=== PATIENT | male | born 1985 | race Caucasian/White ===

== ENCOUNTER 2016-02-16 09:23 | Inpatient (IN) | payer OTHER ==
[~2016-02-16] VITALS: Ht 175.3 cm; Wt 102.9 kg
[~2016-02-16 09:23] MED LIST: ACET325T PO; ALPR.5 PO; APIX5TAB PO; BACL10TA PO; BISA10R RECTAL; CLON.1 PO; DAPT500P IV; DOCU1CAP39 PO; FAMO20TA2 PO; FLEE5TAB PO; HEPAR10KP IV; IPRASOL INH; METO-309 PO; METO10TA PO; METO25TA3 PO; MILKSUS PO; MIRA33504 PO; MORP4INJ3 IV PUSH; OXYC1TAB63 PO; PRAZ5 PO; QUET1TAB7 PO; TRAZ50TA12 PO; ULTR50TA5 PO; ZOLO50TA PO; methylPREDNISolone ACETATE 40 MG/ML VIAL ONE
[2016-02-16] MEDS ORDERED: ceFAZolin 2 GM PREMIX 50 ML ONE (10:07)
[2016-02-16] MEDS ORDERED: LACTATED RINGER'S 1000 ML INJ 1,000 ML ONE (10:07)
[2016-02-16] MEDS ORDERED: SODIUM CHLOR 0.9% 250 ML INJ 250 ML ONE (10:07)
[2016-02-16] MEDS ORDERED: VANCOMYCIN HCL 1000 MG VIAL ONE (10:07)
[2016-02-16] MEDS ORDERED: MAGN400T2 PO (10:18)
[2016-02-16 10:24] VITALS: BP 111/66; PULSE 69; RESP 20; TEMP 98; O2SAT 98
[2016-02-16] MEDS ORDERED: METOPROLOL TARTRATE 25 MG TAB PO PRN (10:30)
[2016-02-16] MEDS ORDERED: SODIUM CHLORID 0.9% 500 ML IV SCH (10:30)
[2016-02-16] MEDS ORDERED: LACTATED RINGER'S 1000 ML IV SCH (10:30)
[2016-02-16] MEDS ORDERED: INSULIN HUMAN REGULAR 1,000 UNITS/10 ML VIAL SQ PRN (10:30)
[2016-02-16] MEDS ORDERED: VANCOMYCIN HCL 1000 MG ON-CALL/NS 250 ML IV SCH ×2 (11:00)
[2016-02-16] MEDS ORDERED: ceFAZolin 2 GM PREMIX 50 ML IV SCH (11:00)
[2016-02-16] MEDS ORDERED: ACETAMINOPHEN 1000 MG/100 ML VIAL IV ONE (11:57)
[2016-02-16] MEDS ORDERED: fentaNYL CITRATE 250 MCG/5 ML AMP ONE (11:57)
[2016-02-16] MEDS ORDERED: FAMOTIDINE 20 MG/2 ML VIAL ONE (11:57)
[2016-02-16] MEDS ORDERED: MIDAZOLAM HCL 2 MG/2 ML VIAL ONE (11:57)
[2016-02-16] MEDS ORDERED: NEOSTIGMINE 3 MG/3 ML SYR IV ONE (12:00)
[2016-02-16] MEDS ORDERED: ePHEDrine/NS 50 MG/5 ML SYR IV ONE (12:00)
[2016-02-16] MEDS ORDERED: ONDANSETRON HCL 4 MG/2 ML VIAL IV PUSH ONE (12:00)
[2016-02-16] MEDS ORDERED: PROPOFOL 200 MG/20 ML AMP IV ONE (12:00)
[2016-02-16] MEDS ORDERED: ACETAMINOPHEN/HYDROcodone 325 MG/10 MG TAB PO PRN ×2 (13:00)
[2016-02-16] MEDS ORDERED: SODIUM CHLORIDE 0.9% FLUSH 5 ML FLUSH IVF PRN (13:00)
[2016-02-16] MEDS ORDERED: MORPHINE SULFATE 4 MG/ML INJ IV PUSH PRN ×2 (13:00)
[2016-02-16] MEDS ORDERED: ACETAMINOPHEN 325 MG TAB PO PRN (13:00)
[2016-02-16] MEDS ORDERED: GENTAMICIN SULFATE 80 MG/2 ML VIAL IRRIGATION ONE (13:00)
[2016-02-16] MEDS ORDERED: GENTAMICIN SULFATE 80 MG/2 ML VIAL ONE (13:59)
[2016-02-16] MEDS: NS + KCL 20 MEQ INJ 1,000 ML IV SCH (14:30)
--- NOTE | 2016-02-16 14:53 | PD.OP ---
Operative Report Date of Surgery: Feb 16, 2016 Preoperative Diagnosis: decubitus wound region Postoperative Diagnosis: decubitus wound thoracolumbar region Procedure: Irriigation and debridement of thoraciclumbar wound Anesthesia: general Surgeon: Hermes Jones Balance Screwhead Polisher(s): Stephanie Cash Operation and Findings: INDICATIONS FOR THE PROCEDURE Mr Kay is a 30 year old male who underwent an ORIF of thoracic fracture with posterolateral fusion using transpedicular screws and rods and paraplegia. He did well postoperatively and lumbar incision was examined and healing without complications. The patient was discharged to [facility] where he developed a decubitus/break down near his incision site, which was treated with chemical debridement and was getting larger and deeper . A surgical irrigation and debridement were indicated. The [id number] details of the procedure, indications, alternatives, risks and potential complications were fully discussed with him. He fully understood. All her questions were answered. No guarantees were given. She voiced requesting the procedure and provided informed consents. He was offered the alternative of delaying the procedure and continuing with nonsurgical management. DETAILS OF THE PROCEDURE After the induction of general anesthesia, endotracheal intubation was performed. A Pandya catheter, bilateral BALWINDER hose and sequential compression devices were placed and kept throughout the procedure. The patient was positioned prone on a Dustin table over a Saul frame. All pressure points were carefully padded with eggcrate mattress. The eyes were tapped shut after ointment was applied by the anesthesiologist to prevent corneal abrasion. A Quinton hugger was placed over the exposed lower body to maintain control of the core body temperature. The thoracic region was prepped and draped in the usual sterile fashion. A skin incision was made with a #10 blade and the tissue was excised. It did not appeared infected. The superficial tissue was debrided with curettes and material was cultured and sent to the lab. Small subcutaneous bleeders were controlled with a bipolar and the dissection was carried out through the abnormal tissue superficial to the fascia . A set of cultures were sent to the lab for aerobic and anaerobic, gram stain, AFB and cultures, including TB and fungus. Tissue was sent for pathology After cultures were obtained. the patient received IV antibiotics and the incision was thoroughly and copiously irrigated with double basic ortho antibiotic solution. The incision was then packed open using a wound vac. At the end of the procedure, the sponge, needle and instrument counts were all correct. The estimated blood loss was less than 50 cc. No intraoperative complications occurred. The patient received prophylactic antibiotics. The patient was then extubated and transferred to the recovery room in stable condition. ESTIMATED BLOOD LOSS: Less than 50 cc. No complications. Hermes Jones MD Feb 16, 2016 14:53
[2016-02-16] MEDS: ceFAZolin 2 GM PREMIX 50 ML IV SCH (17:21)
[2016-02-16 20:11] VITALS: BP 115/63; PULSE 66; RESP 18; TEMP 96.6; O2SAT 100
[2016-02-16] MEDS: SODIUM CHLORIDE 0.9% FLUSH 5 ML FLUSH IVF SCH (21:00)
[2016-02-16] MEDS: DOCUSATE SODIUM 100 MG CAP PO SCH (22:25)
[2016-02-17 00:50] VITALS: BP 108/64; PULSE 72; RESP 20; TEMP 97.3; O2SAT 100
[2016-02-17] MEDS: NS + KCL 20 MEQ INJ 1,000 ML IV SCH ×3 (01:44→17:11)
[2016-02-17] MEDS: ceFAZolin 2 GM PREMIX 50 ML IV SCH ×2 (01:44→09:03)
[2016-02-17 05:09] VITALS: BP 111/60; PULSE 76; RESP 20; TEMP 97.7; O2SAT 98
[2016-02-17 07:05] VITALS: BP 108/65; PULSE 80; RESP 20; TEMP 96.7; O2SAT 97
[2016-02-17] MEDS: DOCUSATE SODIUM 100 MG CAP PO SCH ×4 (09:02→20:51)
[2016-02-17] MEDS: SODIUM CHLORIDE 0.9% FLUSH 5 ML FLUSH IVF SCH ×2 (09:02→20:51)
[2016-02-17] MEDS: PANTOPRAZOLE SOD 40 MG DELAYED RELEASE TAB PO SCH (09:03)
[2016-02-17 11:10] VITALS: BP 115/67; PULSE 71; RESP 20; TEMP 96.5; O2SAT 99
[2016-02-17 11:41] LABS: AUTOMATED NEUTROPHIL # 5.2 TH/MM3 (1.8-7.7); BASOPHIL # 0.1 TH/MM3 (0-0.2); BASOPHIL % 0.8 % (0.0-2.0); EOSINOPHIL # 0.1 TH/MM3 (0-0.4); EOSINOPHIL % 1.9 % (0.0-4.0); HEMATOCRIT 27.7 % (39.0-51.0); HEMO FLAGS DIFF FINAL; LYMPH % 15.3 % (9.0-44.0); MEAN CORPUSCULAR HEMOGLOBIN 27.3 PG (27.0-34.0); MEAN CORPUSCULAR HGB CONC 32.5 % (32.0-36.0); MONO % 5.5 % (0.0-8.0); NEUT % 76.5 % (16.0-70.0); PLATELET COUNT 356 TH/MM3 (150-450); RED CELL DISTRIBUTION WIDTH 17.2 % (11.6-17.2); WHITE BLOOD COUNT 6.7 TH/MM3 (4.0-11.0)
[2016-02-17 12:01] LABS: BICARBONATE 29.1 MEQ/L (21.0-32.0); POTASSIUM 4.1 MEQ/L (3.5-5.1)
[2016-02-17] MEDS ORDERED: oxyCODONE/ACETAMINOPHEN 5 MG/325 MG TAB PO PRN (13:15)
[2016-02-17] MEDS: POLYETHYLENE GLYCOL 17 GM PKG PO SCH (14:00)
[2016-02-17] MEDS ORDERED: traMADol HCL 50 MG TAB PO PRN (14:00)
[2016-02-17] MEDS: SERTRALINE HCL 50 MG TAB PO SCH (14:21)
[2016-02-17] MEDS: MAGNESIUM OXIDE 400 MG TAB PO SCH (14:21)
[2016-02-17] MEDS: BACLOFEN 10 MG TAB PO SCH ×2 (14:21→20:50)
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
[2016-02-17 15:10] VITALS: BP 110/55; PULSE 79; RESP 20; TEMP 97.5; O2SAT 95
--- NOTE | 2016-02-17 15:43 | HHI.NSPN ---
(Kenyetta Alan) Note Status Status: Progress Note (Kenyetta Alan) Interval History Interval History Mr. Kay is a 30-year-old male who underwent open reduction internal fixation of thoracic fracture. Unfortunately he developed a wound dehiscence. Cultures of this wound did not show any evidence of infection. He underwent irrigation and debridement with placement of a wound VAC. 02/16: Day 1 post placement of wound VAC. Currently the patient is very depressed as he is unable to return to [place] [facility] at this time. He reports minimal discomfort from the wound VAC. He is also upset as he did not receive his sleep aids last night. His anticoagulation on hold. (Kenyetta Alan) Labs, Micro, & Vital Signs Results Date Time Temp Pulse Resp B/P Pulse Ox O2 Delivery O2 Flow Rate FiO2 02/17/16 11:10 96.5 71 20 115/67 99 02/17/16 07:05 96.7 80 20 108/65 97 02/17/16 05:09 97.7 76 20 111/60 98 02/17/16 00:50 97.3 72 20 108/64 100 02/16/16 20:11 96.6 66 18 115/63 100 02/16/16 18:39 97.7 68 15 109/57 98 Room Air 02/16/16 17:30 66 15 107/58 98 Room Air 02/16/16 16:15 79 15 123/68 98 Room Air 02/16/16 16:00 74 15 119/60 98 Room Air 02/17/16 07:00 Intake Total 1230 ml Output Total 2550 ml Balance -1320 ml Constitutional Vital Signs Date Time Temp Pulse Resp B/P Pulse Ox O2 Delivery O2 Flow Rate FiO2 02/17/16 11:10 96.5 71 20 115/67 99 02/17/16 07:05 96.7 80 20 108/65 97 02/17/16 05:09 97.7 76 20 111/60 98 02/17/16 00:50 97.3 72 20 108/64 100 02/16/16 20:11 96.6 66 18 115/63 100 02/16/16 18:39 97.7 68 15 109/57 98 Room Air 02/16/16 17:30 66 15 107/58 98 Room Air 02/16/16 16:15 79 15 123/68 98 Room Air 02/16/16 16:00 74 15 119/60 98 Room Air 02/17/16 07:00 Intake Total 1230 ml Output Total 2550 ml Balance -1320 ml (Kenyetta Alan) Review of Systems/Exam Exam Mr. Kay is alert, awake and oriented to time, place and person. Speech is fluent. He appears upset and crying because he cannot return to [place] as well as not receiving his sleep aid last night. Wound VAC in place with good suction. Cranial nerve examination: pupils 4 mm equal, round and reactive to light. Extra-ocular movements are intact. Facial motor and sensory function are normal and symmetrical. Gross hearing appears intact. Neck is soft and supple with a good range of motion without pain. Muscle strength is normal in all muscle groups of both upper extremities. 0/5 in LE. (Kenyetta Alan) Medications Current Medications Current Medications Medications (Trade) Dose Ordered Sig/Riccardo Route PRN Reason Start Time Stop Time Status Last Admin Dose Admin Potassium Chloride/Sodium Chloride (NS + KCl 20 Meq Inj) 1,000 ml @ 100 mls/hr Q10H IV 02/16/16 12:51 02/17/16 01:44 IV Flush (NS Flush) 2 ml UNSCH PRN IVF FLUSH AFTER USING IV ACCESS 02/16/16 13:00 IV Flush (NS Flush) 2 ml BID IVF 02/16/16 21:00 02/17/16 09:02 Docusate Sodium (Colace) 100 mg BID PO 02/16/16 21:00 02/17/16 09:02 Pantoprazole Sodium (Protonix) 40 mg DAILY PO 02/17/16 09:00 02/17/16 09:03 Acetaminophen/ Hydrocodone Bitart ([place] 10-325 Mg) 1 tab Q4H PRN PO PAIN SCALE 1 TO 5 02/16/16 13:00 Acetaminophen/ Hydrocodone Bitart ([place] 10-325 Mg) 2 tab Q4H PRN PO PAIN SCALE 6 TO 10 02/16/16 13:00 Morphine Sulfate (Morphine Inj) 2 mg Q2H PRN IV PUSH PAIN SCALE 1 TO 6 02/16/16 13:00 Morphine Sulfate (Morphine Inj) 4 mg Q2H PRN IV PUSH PAIN SCALE 7 TO 10 02/16/16 13:00 Acetaminophen (Tylenol) 650 mg Q4H PRN PO TEMPERATURE > 101.5 F 02/16/16 13:00 Apixaban (Eliquis) 5 mg BID PO 02/17/16 21:00 Baclofen (Lioresal) 5 mg Q8HR PO 02/17/16 14:00 02/17/16 14:21 Bisacodyl (Dulcolax Ec) 5 mg HS PO 02/17/16 21:00 Docusate Sodium (Colace) 100 mg BID PO 02/17/16 14:00 Famotidine (Pepcid) 20 mg BID PO 02/17/16 21:00 Heparin Sodium (Porcine) (Heparin Inj) 5,000 units Q12HR IV 02/17/16 21:00 Magnesium Oxide (Mag-Ox) 400 mg DAILY PO 02/17/16 14:00 02/17/16 14:21 Metoprolol Tartrate (Lopressor) 12.5 mg Q12HR PO 02/17/16 21:00 Oxycodone/ Acetaminophen (Percocet 5-325 Mg) 1 tab Q4H PRN PO pain 02/17/16 13:15 UNV Polyethylene Glycol (Miralax) 17 gm DAILY PO 02/17/16 14:00 Prazosin HCl (Minipress) 5 mg HS PO 02/17/16 21:00 Quetiapine Fumarate (SEROquel) 12.5 mg HS PO 02/17/16 21:00 Sertraline HCl (Zoloft) 50 mg DAILY PO 02/17/16 14:00 02/17/16 14:21 Tramadol HCl (Ultram) 25 mg Q6H PRN PO pain 02/17/16 14:00 (Kenyetta Alan) Medical Decision Making MDM Remarks 30 y/o male s/p irrigation and debridement of thoracic wound with placement of wound VAC 02/16/16 (Kenyetta Alan) Plan Plan Remarks Continue wound VAC with dressing changes per protocol Continue physical therapy Medical management Clear to restart anticoagulation Clear to return to [place] [facility] (Kenyetta Alan) Attending Statement The exam, history, and the medical decision-making described in the above note were completed with the assistance of the mid-level provider. I reviewed and agree with the findings presented. I attest that I had a [id number] encounter with the patient on the same day, and personally performed and documented my assessment and findings in the medical record. (Hermes Jones MD) Kenyetta Alan Feb 17, 2016 15:43 Hermes Jones MD Feb 20, 2016 18:21
[2016-02-17 20:00] VITALS: BP 122/77; PULSE 89; RESP 16; TEMP 97.7; O2SAT 98
[2016-02-17] MEDS: PRAZOSIN HCL 5 MG CAP PO SCH (20:49)
[2016-02-17] MEDS: BISACODYL EC 5 MG TABEC PO SCH (20:50)
[2016-02-17] MEDS: METOPROLOL TARTRATE 25 MG TAB PO SCH (20:50)
[2016-02-17] MEDS: APIXABAN 5 MG TABLET PO SCH (20:50)
[2016-02-17] MEDS: FAMOTIDINE 20 MG TAB PO SCH (20:50)
[2016-02-17] MEDS: QUEtiapine FUMARATE 25 MG TAB PO SCH (20:51)
[2016-02-17] MEDS: HEPARIN SODIUM - IV 10,000 UNITS/10 ML VIAL IV SCH (20:51)
[2016-02-18] VITALS: BP 111/58; PULSE 78; RESP 16; TEMP 98; O2SAT 93
[2016-02-18 04:27] VITALS: BP 98/61; PULSE 71; RESP 12; TEMP 96.5; O2SAT 94
[2016-02-18] MEDS: BACLOFEN 10 MG TAB PO SCH ×3 (05:07→20:31)
[2016-02-18 08:02] VITALS: BP 108/69; PULSE 71; TEMP 97.6; O2SAT 96
[2016-02-18] MEDS: APIXABAN 5 MG TABLET PO SCH ×2 (09:00→20:32)
[2016-02-18] MEDS: DOCUSATE SODIUM 100 MG CAP PO SCH ×4 (09:00→20:32)
[2016-02-18] MEDS: SERTRALINE HCL 50 MG TAB PO SCH (09:00)
[2016-02-18] MEDS: HEPARIN SODIUM - IV 10,000 UNITS/10 ML VIAL IV SCH ×2 (09:01→20:31)
[2016-02-18] MEDS: FAMOTIDINE 20 MG TAB PO SCH ×2 (09:01→20:32)
[2016-02-18] MEDS: METOPROLOL TARTRATE 25 MG TAB PO SCH ×2 (09:01→20:31)
[2016-02-18] MEDS: PANTOPRAZOLE SOD 40 MG DELAYED RELEASE TAB PO SCH (09:01)
[2016-02-18] MEDS: MAGNESIUM OXIDE 400 MG TAB PO SCH (09:01)
[2016-02-18] MEDS: POLYETHYLENE GLYCOL 17 GM PKG PO SCH (09:01)
[2016-02-18] MEDS: SODIUM CHLORIDE 0.9% FLUSH 5 ML FLUSH IVF SCH ×2 (09:02→20:32)
[2016-02-18] MEDS ORDERED: PNEUMOCOCCAL POLYVALENT INJ 25 MCG/0.5 ML SYR IM ONE (10:00)
[2016-02-18] MEDS ORDERED: INFLUENZA VIRUS VACCINE (QUADRIVALENT) 0.5 ML SYR IM ONE (10:00)
--- NOTE | 2016-02-18 11:36 | HHI.PR ---
Subjective Remarks Patient says he has no pain at his time. No fever or chills. Denies n/v/d/c. Sasy he would like to go back to [facility] inpatient rehab. Objective Vitals Vital Signs Date Time Temp Pulse Resp B/P Pulse Ox O2 Delivery O2 Flow Rate FiO2 02/18/16 08:02 97.6 71 108/69 96 02/18/16 04:27 96.5 71 12 98/61 94 02/18/16 00:00 98.0 78 16 111/58 93 02/17/16 20:00 97.7 89 16 122/77 98 02/17/16 15:10 97.5 79 20 110/55 95 I/O 02/17/16 02/17/16 02/17/16 02/18/16 02/18/16 02/18/16 07:00 15:00 23:00 07:00 15:00 23:00 Intake Total 600 ml 250 ml Output Total 1150 ml 2000 ml 1400 ml Balance -1150 ml -2000 ml -800 ml 250 ml Intake Oral 600 ml 250 ml Output Urine Total 1150 ml 2000 ml 1400 ml # Bowel Movements 1 Result Diagram: 02/17/16 1126 02/17/16 1126 Objective Remarks GENERAL: This is a well-nourished, well-developed patient, in no apparent distress. SKIN: Lumbar wound with packing in place. HEENT: Normocephalic. Pupils equal round and reactive. Nose without bleeding. Airway patent. NECK: Trachea midline. No JVD. Supple. CARDIOVASCULAR: Regular rate and rhythm without murmurs, gallops, or rubs. RESPIRATORY: Clear to auscultation. Breath sounds equal bilaterally. No wheezes , rales, or rhonchi. GASTROINTESTINAL: Abdomen soft, non-tender, nondistended. Bowel Sounds normoactive x4. MUSCULOSKELETAL: Extremities without clubbing, cyanosis, or edema. Bilateral lower extremity muscle wasting. NEUROLOGICAL: Awake and alert. Oriented x 3. Paralyzed from umbilicus down loss of both muscle and sensory. 4 out of 5 strength bilateral upper extremities. Normal speech. A/P Problem List: (1) Wound dehiscence ICD Code: T81.30XA Status: Acute (2) Paraplegia following spinal cord injury ICD Code: G82.20 Status: Acute (3) Depression ICD Code: F32.9 Status: Acute Assessment and Plan (1) Wound dehiscence ICD Code: T81.30XA Status: Acute Plan: Patient had a CT on 02/06/15 while on inpatient rehabilitation that showed open wound on the left side at the L1 to L2 which extended to the depth of the surgical hardware on the left. Patient status post irrigation regimen of wound. Continue management as per neurosurgery. Antinea Colace, MiraLAX, magnesium oxide for aspiration prevention. Continue pain control with [place] and morphine when necessary which the patient has not required any use of. Patient was seen by infectious disease in inpatient rehabilitation and placed on 14 days of ciprofloxacin which the patient completed. Patient is afebrile and there are no signs of infection. There is no leukocytosis. (2) Paraplegia following spinal cord injury ICD Code: G82.20 Status: Acute Plan: Continue physical therapy. (3) Depression ICD Code: F32.9 Status: Acute Plan: To be stable on Zoloft. Assessment and Plan GI prophylaxis: PPI. Code Status Full code Discussed Condition With Patient, RN. Autumn Guzmán MD Feb 18, 2016 11:36
[2016-02-18 12:00] VITALS: BP 99/62; PULSE 80; RESP 16; TEMP 95.8; O2SAT 99
[2016-02-18] MEDS: NS + KCL 20 MEQ INJ 1,000 ML IV SCH (14:01)
--- NOTE | 2016-02-18 14:09 | HHI.NSPN ---
(Kenyetta Alan) Note Status Status: Progress Note (Kenyetta Alan) Interval History Interval History Mr. Kay is a 30-year-old male who underwent open reduction internal fixation of thoracic fracture. Unfortunately he developed a wound dehiscence. Cultures of this wound did not show any evidence of infection. He underwent irrigation and debridement with placement of a wound VAC. 02/16: Day 1 post placement of wound VAC. Currently the patient is very depressed as he is unable to return to [place] [facility] at this time. He reports minimal discomfort from the wound VAC. He is also upset as he did not receive his sleep aids last night. His anticoagulation on hold. 02/17: Day 2, in better spirits, had his wheelchair delivered yesterday. no new complaints, eager to return to rehab (Kenyetta Alan) Labs, Micro, & Vital Signs Results Date Time Temp Pulse Resp B/P Pulse Ox O2 Delivery O2 Flow Rate FiO2 02/18/16 12:00 95.8 80 16 99/62 99 02/18/16 08:02 97.6 71 108/69 96 02/18/16 04:27 96.5 71 12 98/61 94 02/18/16 00:00 98.0 78 16 111/58 93 02/17/16 20:00 97.7 89 16 122/77 98 02/17/16 15:10 97.5 79 20 110/55 95 02/18/16 07:00 Intake Total 850 ml Output Total 3400 ml Balance -2550 ml Constitutional Vital Signs Date Time Temp Pulse Resp B/P Pulse Ox O2 Delivery O2 Flow Rate FiO2 02/18/16 12:00 95.8 80 16 99/62 99 02/18/16 08:02 97.6 71 108/69 96 02/18/16 04:27 96.5 71 12 98/61 94 02/18/16 00:00 98.0 78 16 111/58 93 02/17/16 20:00 97.7 89 16 122/77 98 02/17/16 15:10 97.5 79 20 110/55 95 02/18/16 07:00 Intake Total 850 ml Output Total 3400 ml Balance -2550 ml (Kenyetta Alan) Review of Systems/Exam Exam Mr. Kay is alert, awake and oriented to time, place and person. Speech is fluent. He appears upset and crying because he cannot return to [place] as well as not receiving his sleep aid last night. Wound VAC in place with good suction. Cranial nerve examination: pupils 4 mm equal, round and reactive to light. Extra-ocular movements are intact. Facial motor and sensory function are normal and symmetrical. Gross hearing appears intact. Neck is soft and supple with a good range of motion without pain. Muscle strength is normal in all muscle groups of both upper extremities. 0/5 in LE. (Kenyetta Alan) Medications Current Medications Current Medications Medications (Trade) Dose Ordered Sig/Riccardo Route PRN Reason Start Time Stop Time Status Last Admin Dose Admin Potassium Chloride/Sodium Chloride (NS + KCl 20 Meq Inj) 1,000 ml @ 100 mls/hr Q10H IV 02/16/16 12:51 02/17/16 01:44 IV Flush (NS Flush) 2 ml UNSCH PRN IVF FLUSH AFTER USING IV ACCESS 02/16/16 13:00 IV Flush (NS Flush) 2 ml BID IVF 02/16/16 21:00 02/18/16 09:02 Docusate Sodium (Colace) 100 mg BID PO 02/16/16 21:00 02/18/16 09:00 Pantoprazole Sodium (Protonix) 40 mg DAILY PO 02/17/16 09:00 02/18/16 09:01 Acetaminophen/ Hydrocodone Bitart ([place] 10-325 Mg) 1 tab Q4H PRN PO PAIN SCALE 1 TO 5 02/16/16 13:00 Acetaminophen/ Hydrocodone Bitart ([place] 10-325 Mg) 2 tab Q4H PRN PO PAIN SCALE 6 TO 10 02/16/16 13:00 Morphine Sulfate (Morphine Inj) 2 mg Q2H PRN IV PUSH PAIN SCALE 1 TO 6 02/16/16 13:00 Morphine Sulfate (Morphine Inj) 4 mg Q2H PRN IV PUSH PAIN SCALE 7 TO 10 02/16/16 13:00 Acetaminophen (Tylenol) 650 mg Q4H PRN PO TEMPERATURE > 101.5 F 02/16/16 13:00 Apixaban (Eliquis) 5 mg BID PO 02/17/16 21:00 02/18/16 09:00 Baclofen (Lioresal) 5 mg Q8HR PO 02/17/16 14:00 02/18/16 13:03 Bisacodyl (Dulcolax Ec) 5 mg HS PO 02/17/16 21:00 02/17/16 20:50 Docusate Sodium (Colace) 100 mg BID PO 02/17/16 14:00 Famotidine (Pepcid) 20 mg BID PO 02/17/16 21:00 02/18/16 09:01 Heparin Sodium (Porcine) (Heparin Inj) 5,000 units Q12HR IV 02/17/16 21:00 02/18/16 09:01 Magnesium Oxide (Mag-Ox) 400 mg DAILY PO 02/17/16 14:00 02/18/16 09:01 Metoprolol Tartrate (Lopressor) 12.5 mg Q12HR PO 02/17/16 21:00 02/18/16 09:01 Oxycodone/ Acetaminophen (Percocet 5-325 Mg) 1 tab Q4H PRN PO BREAKTHROUGH PAIN 02/17/16 13:15 Polyethylene Glycol (Miralax) 17 gm DAILY PO 02/17/16 14:00 02/18/16 09:01 Prazosin HCl (Minipress) 5 mg HS PO 02/17/16 21:00 02/17/16 20:49 Quetiapine Fumarate (SEROquel) 12.5 mg HS PO 02/17/16 21:00 02/17/16 20:51 Sertraline HCl (Zoloft) 50 mg DAILY PO 02/17/16 14:00 02/18/16 09:00 Tramadol HCl (Ultram) 25 mg Q6H PRN PO pain 02/17/16 14:00 (Kenyetta Alan) Medical Decision Making MDM Remarks 30 y/o male s/p irrigation and debridement of thoracic wound with placement of wound VAC 02/16/16 (Kenyetta Alan) Plan Plan Remarks Continue wound VAC with dressing changes per protocol Continue physical therapy Clear to restart anticoagulation Clear to return to [place] [facility] (Kenyetta Alan) Attending Statement The exam, history, and the medical decision-making described in the above note were completed with the assistance of the mid-level provider. I reviewed and agree with the findings presented. I attest that I had a [id number] encounter with the patient on the same day, and personally performed and documented my assessment and findings in the medical record. (Hermes Jones MD) Kenyetta Alan Feb 18, 2016 14:09 Hermes Jones MD Feb 20, 2016 18:12
[2016-02-18 16:00] VITALS: BP 116/65; PULSE 84; RESP 18; TEMP 96.8; O2SAT 96
[2016-02-18] MEDS: PRAZOSIN HCL 5 MG CAP PO SCH (20:31)
[2016-02-18] MEDS: QUEtiapine FUMARATE 25 MG TAB PO SCH (20:31)
[2016-02-18] MEDS: BISACODYL EC 5 MG TABEC PO SCH (20:31)
[2016-02-18 20:34] VITALS: BP 109/66; PULSE 82; RESP 20; TEMP 96.9; O2SAT 100
[2016-02-19 04:00] VITALS: BP 105/58; PULSE 78; RESP 14; TEMP 97.7; O2SAT 93
[2016-02-19] MEDS: BACLOFEN 10 MG TAB PO SCH (05:46)
[2016-02-19 08:00] VITALS: BP 108/61; PULSE 79; RESP 20; TEMP 97.9; O2SAT 94
[2016-02-19] MEDS: DOCUSATE SODIUM 100 MG CAP PO SCH ×2 (09:00→09:04)
[2016-02-19] MEDS: METOPROLOL TARTRATE 25 MG TAB PO SCH (09:04)
[2016-02-19] MEDS: FAMOTIDINE 20 MG TAB PO SCH (09:04)
[2016-02-19] MEDS: MAGNESIUM OXIDE 400 MG TAB PO SCH (09:04)
[2016-02-19] MEDS: APIXABAN 5 MG TABLET PO SCH (09:04)
[2016-02-19] MEDS: SERTRALINE HCL 50 MG TAB PO SCH (09:04)
[2016-02-19] MEDS: PANTOPRAZOLE SOD 40 MG DELAYED RELEASE TAB PO SCH (09:04)
[2016-02-19] MEDS: HEPARIN SODIUM - IV 10,000 UNITS/10 ML VIAL IV SCH (09:05)
[2016-02-19] MEDS: POLYETHYLENE GLYCOL 17 GM PKG PO SCH (09:05)
[2016-02-19] MEDS: SODIUM CHLORIDE 0.9% FLUSH 5 ML FLUSH IVF SCH (09:05)
[2016-02-19] MEDS: NS + KCL 20 MEQ INJ 1,000 ML IV SCH (09:39)
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
[2016-02-19 12:00] VITALS: BP 114/64; PULSE 80; RESP 19; TEMP 98.2; O2SAT 96
--- NOTE | 2016-02-19 12:45 | HHI.NSPN ---
History Chief Complaint: Incisional back pain. Interval History Mr. Kay is a 30-year-old male who underwent open reduction internal fixation of thoracic fracture. Unfortunately he developed a wound dehiscence. Cultures of this wound did not show any evidence of infection. He underwent irrigation and debridement with placement of a wound VAC. 02/16: Day 1 post placement of wound VAC. Currently the patient is very depressed as he is unable to return to [facility] at this time. He reports minimal discomfort from the wound VAC. He is also upset as he did not receive his sleep aids last night. His anticoagulation on hold. 02/17: Day 2, in better spirits, had his wheelchair delivered yesterday. no new complaints, eager to return to rehab 02/19/16: Pt awake and alert. Incisional back pain. Some radiation into ribs with coughing. Wound vac in place. Exam stable. Review of Systems General: Negative for: fever, chills, insomnia Respiratory: Negative for: shortness of breath, cough, sputum Cardiovascular: Negative for: chest pain Gastrointestinal: Negative for: nausea, vomitting, diarrhea, constipation Exam Results Vital Signs Date Time Temp Pulse Resp B/P Pulse Ox O2 Delivery O2 Flow Rate FiO2 02/19/16 12:00 98.2 80 19 114/64 96 02/16/16 18:39 Room Air 02/16/16 13:42 2 Intake and Output 02/18/16 02/18/16 02/19/16 08:00 16:00 00:00 Intake Total 250 ml Output Total 1100 ml Balance 250 ml -1100 ml Physical Examination Resp: CTA bilaterally Heart: NSR no murmurs Abd: Soft positive bs Skin: Wound VAC in place with good suction. Muscle: Moves UEs well. No movement in LEs. Neuro: He is awake and oriented to time, place and person. Speech is fluent. Cranial nerve examination: pupils 4 mm equal, round and reactive to light. Extra-ocular movements are intact. Facial motor and sensory function are normal and symmetrical. Gross hearing appears intact. Pt states sensation starts to change in abdomen and then becomes numb which is stable. Lab, Micro, Other Results 02/18/16 02/18/16 02/19/16 15:00 23:00 07:00 Output Total 1100 ml Balance -1100 ml Output Urine Total 1100 ml # Bowel Movements 1 Medical Decision Making Impression and Plan A: 30 y/o M s/p I and D of thoracic wound with placement of wound vac. P: Continue with wound vac [facility] placement. Oswald Santo Feb 19, 2016 12:45
[2016-02-19] MEDS ORDERED: BISA10SU3 RECTAL (13:40)
[2016-03-09] MEDS ORDERED: FERR325T PO (10:07)
[2016-03-09] MEDS ORDERED: FURO20TA PO (10:07)
[2016-03-09] MEDS ORDERED: METH500T3 PO (10:07)
[2016-03-09] MEDS ORDERED: QUET1TAB7 PO (10:07)
[2016-03-09] MEDS ORDERED: OXYC-395 PO (10:07)
[2016-03-09] MEDS ORDERED: BISA10R RECTAL (10:07)
[2016-03-09] MEDS ORDERED: PRAZ5 PO (10:07)
[2016-03-09] MEDS ORDERED: POTA10CA PO (10:07)
[2016-03-09] MEDS ORDERED: ZOLO50TA PO (10:07)
[2016-03-09] MEDS ORDERED: APIX5TAB PO (10:07)
[2016-03-09] MEDS ORDERED: MAGN400T3 PO (10:07)
[2016-03-09] MEDS ORDERED: LIDO5DIS35 TD (10:07)
[2016-03-09] MEDS ORDERED: SENN1TAB PO (10:07)
[2016-03-09] MEDS ORDERED: BACL10TA PO (10:07)
[2016-03-09] MEDS ORDERED: METO25TA3 PO (10:07)
[2016-03-09] MEDS ORDERED: PENI5INJ IV (10:10)
[2016-03-09] MEDS ORDERED: BEDSIDE COMMODE1 MI1 (16:16)
[2016-04-12] MEDS ORDERED: OXYC-395 PO (15:58)
[2016-05-17] MEDS ORDERED: VIAG25TA PO (15:44)
== END 2016-02-19 13:20 | DRG 901 ==
LOC: HSDC 09:23 → N05A 14:33
PROVIDERS: ADMIT Hospitalist; ATTEND Hospitalist
PROC: 0HB6XZZ Excision of Back Skin, External Approach (ICD-10-PCS; principal; 2016-02-16 12:15)
DX: T81.30XA Disruption of wound, unspecified, initial encounter (principal); J15.212 Pneumonia due to Methicillin resistant Staphylococcus aureus; J15.6 Pneumonia due to other Gram-negative bacteria; G82.20 Paraplegia, unspecified; L89.109 Pressure ulcer of unspecified part of back, unspecified stage; L71.9 Rosacea, unspecified; F43.10 Post-traumatic stress disorder, unspecified; F32.9 Major depressive disorder, single episode, unspecified
CPT/HCPCS: 80048; 85025; 86403; 87015; 87070; 87077; 87102; 87116; 87176; 87186; 87205; 87206; 88304; 88305; 90471; 90472; 90686; 90732; G0008; G0009; J0131; J0690; J1030; J1580; J1644; J2250; J2405; J2710; J3010; J3370; J3480; J7050; J7120; Q2038

== ENCOUNTER 2016-03-22 21:29 | Inpatient (IN) | payer OTHER ==
[~2016-03-22] VITALS: Ht 175.3 cm; Wt 109.2 kg
[~2016-03-22 21:29] MED LIST changes: -ACET325T PO; -ALPR.5 PO; +BEDSIDE COMMODE1 MI1; +BISA10SU3 RECTAL; -CLON.1 PO; -DAPT500P IV; +FERR325T PO; +FURO20TA PO; -IPRASOL INH; +LIDO5DIS35 TD; +MAGN400T3 PO; +METH500T3 PO; -METO-309 PO; -METO10TA PO; -MILKSUS PO; -MORP4INJ3 IV PUSH; +OXYC-395 PO; +PENI5INJ IV; +POTA10CA PO; +SENN1TAB PO; -TRAZ50TA12 PO; -methylPREDNISolone ACETATE 40 MG/ML VIAL ONE
[2016-03-22 21:30] VITALS: BP 131/64; PULSE 136; RESP 24; TEMP 102.9; O2SAT 98
[2016-03-22 23:13] VITALS: BP 112/57; PULSE 119; RESP 22; TEMP 101.2; O2SAT 98
[2016-03-22 23:46] VITALS: O2SAT 98
[2016-03-22 23:56] LABS: AUTOMATED NEUTROPHIL # 15.5 TH/MM3 (1.8-7.7); BASOPHIL # 0.1 TH/MM3 (0-0.2); BASOPHIL % 0.4 % (0.0-2.0); EOSINOPHIL % 0.1 % (0.0-4.0); HEMATOCRIT 24.1 % (39.0-51.0); HEMO FLAGS DIFF FINAL; LYMPH % 5.1 % (9.0-44.0); LYMPHOCYTE # 0.9 TH/MM3 (1.0-4.8); MEAN CELL VOLUME 77.9 FL (80.0-100.0); MEAN CORPUSCULAR HEMOGLOBIN 25.2 PG (27.0-34.0); MEAN CORPUSCULAR HGB CONC 32.4 % (32.0-36.0); MONO % 5.9 % (0.0-8.0); NEUT % 88.5 % (16.0-70.0); PLATELET COUNT 408 TH/MM3 (150-450); RED BLOOD COUNT 3.09 MIL/MM3 (4.50-5.90); WHITE BLOOD COUNT 17.5 TH/MM3 (4.0-11.0)
[2016-03-23] VITALS (7 sets, daily range): BP systolic 113–127; BP diastolic 60–75; PULSE 92–111; RESP 18–19; TEMP 98.3–100.7; O2SAT 97–99
[2016-03-23 00:03] LABS: BACTERIA, URINE RARE /hpf; BLOOD, URINE SMALL (NEG); COMMENT (UR) CULT NOT INDICATED; CULTURE IF INDICATED CULT NOT INDICATED; GLUCOSE,URINE NEG (NEG); KETONE, URINE NEG (NEG); MUCUS URINE FEW /lpf (OCC); NITRITE,URINE NEG (NEG); PH, URINE 6.5 (5.0-8.5); SQUAMOUS EPITHELIAL CELL URINE <1 /hpf (0-5); URINE COLOR YELLOW (YELLW/STRAW)
[2016-03-23 00:12] LABS: ALT (GPT) 42 U/L (12-78); ANION GAP 9 MEQ/L (5-15); AST (GOT) 50 U/L (15-37); BICARBONATE 26.5 MEQ/L (21.0-32.0); BLOOD UREA NITROGEN 12 MG/DL (7-18); CHLORIDE 98 MEQ/L (98-107); GLOMERULAR FILTRATION RATE 109 ML/MIN (>89); POTASSIUM 3.7 MEQ/L (3.5-5.1); SODIUM (NA) 133 MEQ/L (136-145)
[2016-03-23 00:14] LABS: ALKALINE PHOSPHATASE 227 U/L (45-117); TOTAL BILIRUBIN ADULT 0.6 MG/DL (0.2-1.0)
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
[2016-03-23] MEDS ORDERED: ACETAMINOPHEN 325 MG TAB PO ONE (02:15)
[2016-03-23] MEDS ORDERED: VANCOMYCIN INJ 1,000 MG in SODIUM CHLOR 0.9% 250 ML INJ 250 ML IV ONE (02:15)
--- NOTE | 2016-03-23 03:05 | RADRPT ---
EXAM DATE/TIME: 03/23/2016 02:04 [place] COMPARISON: CHEST SINGLE AP, February 21, 2016, 18:35. INDICATIONS : Short of breath with fever. MEDICAL HISTORY : None. SURGICAL HISTORY : Fusion, thoracic. Fusion, lumbar. ENCOUNTER: Initial ACUITY: 1 day PAIN SCORE: 6/10 LOCATION: Bilateral chest FINDINGS: A single view of the chest demonstrates the lungs to be symmetrically aerated without evidence of mas s, infiltrate or effusion. The cardiomediastinal contours are unremarkable. There is transpedicular fixation at the thoracolumbar junction. A PICC line is in place via right-sided approach with its tip in the region of the superior vena cava. CONCLUSION: 1. No acute cardiopulmonary disease. Kristopher Vinson MD on March 23, 2016 at 3:02 Board Certified Radiologist. This report was verified electronically.
[2016-03-23] MEDS ORDERED: Vancomycin Consult Pharmacy 1 EA OTHER SCH (03:30)
[2016-03-23] MEDS ORDERED: HYDROmorphone HCL PF 1 MG/ML VIAL IV PRN (03:30)
[2016-03-23] MEDS ORDERED: BISACODYL 10 MG SUPP PR PRN (03:30)
[2016-03-23] MEDS ORDERED: ONDANSETRON HCL 4 MG/2 ML VIAL IVP PRN (03:30)
[2016-03-23] MEDS: SODIUM CHLOR 0.9% 1000 ML INJ 1,000 ML IV SCH ×2 (03:42→15:48)
[2016-03-23] MEDS ORDERED: PILL SPLITTER OTHER PRN (03:45)
[2016-03-23] MEDS: CEFEPIME INJ 1,000 MG in SODIUM CHLORIDE 0.9% INJ 100 ML IV SCH ×2 (04:26→16:58)
[2016-03-23] MEDS ORDERED: PENICILLIN G POTASSIUM INJ 3,000,000 UNITS in SODIUM CHLORIDE 0.9% INJ 100 ML IV SCH (05:00)
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
[2016-03-23] MEDS ORDERED: VANCOMYCIN 1,000 MG/NS 250 ML IV ONE ×2 (08:00)
[2016-03-23] MEDS: SODIUM CHLORIDE 0.9% FLUSH 5 ML FLUSH FLUSH SCH (09:00)
[2016-03-23] MEDS: LIDOCAINE HCL 5% PATCH TD SCH (09:00)
[2016-03-23] MEDS: FERROUS SULFATE 325 MG (65 MG ELEMENTAL IRON) TAB PO SCH (10:00)
[2016-03-23] MEDS: FAMOTIDINE 20 MG TAB PO SCH (10:00)
[2016-03-23] MEDS: BACLOFEN 10 MG TAB PO SCH ×2 (10:00→14:16)
[2016-03-23] MEDS: APIXABAN 5 MG TABLET PO SCH (10:01)
[2016-03-23] MEDS: SERTRALINE HCL 50 MG TAB PO SCH (10:01)
[2016-03-23 11:32] LABS: AUTOMATED NEUTROPHIL # 13.1 TH/MM3 (1.8-7.7); BASOPHIL # 0.1 TH/MM3 (0-0.2); BASOPHIL % 0.5 % (0.0-2.0); EOSINOPHIL # 0.1 TH/MM3 (0-0.4); EOSINOPHIL % 0.9 % (0.0-4.0); HEMATOCRIT 22.6 % (39.0-51.0); HEMO FLAGS DIFF FINAL; LYMPH % 4.7 % (9.0-44.0); LYMPHOCYTE # 0.7 TH/MM3 (1.0-4.8); MEAN CELL VOLUME 78.9 FL (80.0-100.0); MEAN CORPUSCULAR HEMOGLOBIN 25.5 PG (27.0-34.0); MEAN CORPUSCULAR HGB CONC 32.4 % (32.0-36.0); MONO % 5.9 % (0.0-8.0); PLATELET COUNT 357 TH/MM3 (150-450); RED BLOOD COUNT 2.86 MIL/MM3 (4.50-5.90); RED CELL DISTRIBUTION WIDTH 18.6 % (11.6-17.2); WHITE BLOOD COUNT 14.9 TH/MM3 (4.0-11.0)
[2016-03-23 11:48] LABS: BICARBONATE 26.4 MEQ/L (21.0-32.0); POTASSIUM 3.4 MEQ/L (3.5-5.1)
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
[2016-03-23] MEDS: PENICILLIN G POTASSIUM INJ 3,000,000 UNITS in SODIUM CHLORIDE 0.9% INJ 100 ML IV SCH ×2 (18:07→20:00)
[2016-03-23] MEDS: VANCOMYCIN INJ 1,500 MG in SODIUM CHLORID 0.9% 500 ML INJ 500 ML IV SCH (18:56)
[2016-03-23] MEDS: ACETAMINOPHEN 325 MG TAB PO PRN (19:38)
[2016-03-23] MEDS: REMOVE OLD PATCH T-DERMAL SCH (21:00)
[2016-03-23] MEDS ORDERED: IOHEXOL 350 MG/ML 10 ML VIAL (for RAD DIAG) IV ONE (22:43)
--- NOTE | 2016-03-23 23:11 | RADRPT ---
EXAM DATE/TIME: 03/23/2016 22:31 [facility] COMPARISON: No previous studies available for comparison. INDICATIONS : Eval recurrent fluid collection at incision site. IV CONTRAST: 75 cc Omnipaque 350 (iohexol) IV RADIATION DOSE: 38.14 CTDIvol (mGy) ; Combined studies MEDICAL HISTORY : Hypertension. Deep venous thrombosis. SURGICAL HISTORY : T10-L2 fusion ENCOUNTER: Subsequent ACUITY: 3 days PAIN SCALE: 5/10 LOCATION: Paraspinal TECHNIQUE: Volumetric scanning of the lumbar spine was performed. Multiplanar reconstructions in the sagittal, coronal and oblique axial planes were performed. Using automated exposure control and adjustment of the mA and/or kV according to patient size, radiation dose was kept as low as reasonably achievable t o obtain optimal diagnostic quality images. FINDINGS: Sagittal images demostrate normal vertebral body alignment and curvature. No fractures are identified . Axial images performed from T12-L1 through L5-S1. There is fusion across the right sacroiliac joint . There is a subcutaneous fluid collection posterior to spinous process at the lumbosacral junction m easuring 8.9 x 2.5 CM which may reflect hematoma, seroma or abscess. This extends laterally over the posterior aspect of the right ilium not entirely seen in this [id number]. There is enlargement of the left psoas muscle compared to the right but no abscess is seen. T12-L1: No significant abnormalities identified. L1-L2: Laminectomy defect is present. There is no significant spinal canal stenosis. L2-L3: There is mild diffuse annular bulge of the disc. The neural foramina are clear bilaterally. There is no significant spinal canal stenosis. L3-L4: No significant abnormalities identified. L4-L5: No significant abnormalities identified. L5-S1: A central disc protrusion is present impinging on the thecal sac. There is no significant spinal justin l stenosis. The neural foramina are clear bilaterally. CONCLUSION: 1. Small central protrusion at L5-S1 without stenosis. 2. Subcutaneous fluid collection at the lumbosacral junction as above which may reflect hematoma, ser julio or abscess Kristopher Vinson MD on March 23, 2016 at 23:05 Board Certified Radiologist. This report was verified electronically.
--- NOTE | 2016-03-23 23:36 | RADRPT ---
EXAM DATE/TIME: 03/23/2016 22:31 [facility] COMPARISON: CT THORACIC SPINE W/O CONTRAST, February 08, 2016, 16:11. INDICATIONS : Eval recurrent fluid collection at incision surface. IV CONTRAST: 75 cc Omnipaque 350 (iohexol) IV RADIATION DOSE: 38.14 CTDIvol (mGy) ; Combined studies MEDICAL HISTORY : Hypertension. Deep venous thrombosis. SURGICAL HISTORY : T10-L2 fusion. ENCOUNTER: Initial ACUITY: 3 days PAIN SCALE: 5/10 LOCATION: Paraspinal TECHNIQUE: Volumetric scanning of the thoracic spine was performed. Multiplanar reconstructions in the sagittal , coronal and oblique axial planes were performed. Using automated exposure control and adjustment o f the mA and/or kV according to patient size, radiation dose was kept as low as reasonably achievable to obtain optimal diagnostic quality images. FINDINGS: Sagittal images demonstrate normal vertebral body alignment and curvature. No fractures identified. A xial images performed from T1-T2 through T12-L1. There is transpedicular screw fixation from T10-L2. Right thyroidectomy is evident at the level of thoracic inlet. T1-T2: No significant abnormalities identified. T2-T3: No significant abnormalities identified. T3-T4: No significant abnormalities identified. T4-T5: No significant abnormalities identified. T5-T6: No significant abnormalities identified. T6-T7: No significant abnormalities identified. T7-T8: No significant abnormalities identified. T8-T9: No significant abnormalities identified. T9-T10: No significant abnormalities identified. T10-T11: No significant abnormalities identified. T11-T12: Fracture of the superior endplate of T11 is identified. There is no significant spinal canal stenosis. There is periosteal reaction involving the posterior elements. The findings are similar to the prior exam. T12-L1: No significant abnormalities identified. CONCLUSION: Postsurgical changes as above. Stable fracture at the T11 level with periosteal action similar to the prior study. No subcutaneous abscess is seen. Kristopher Vinson MD on March 23, 2016 at 23:28 Board Certified Radiologist. This report was verified electronically.
[2016-03-24] VITALS (8 sets, daily range): BP systolic 98–124; BP diastolic 53–67; PULSE 87–112; RESP 18–20; TEMP 98.1–100.2; O2SAT 94–98
[2016-03-24] MEDS: PRAZOSIN HCL 5 MG CAP PO SCH ×2 (00:01→21:28)
[2016-03-24] MEDS: QUEtiapine FUMARATE 25 MG TAB PO SCH ×2 (00:02→21:29)
[2016-03-24] MEDS: BACLOFEN 10 MG TAB PO SCH ×4 (00:02→21:29)
[2016-03-24] MEDS: FAMOTIDINE 20 MG TAB PO SCH ×3 (00:02→21:28)
[2016-03-24] MEDS: APIXABAN 5 MG TABLET PO SCH ×3 (00:02→21:29)
[2016-03-24] MEDS: FERROUS SULFATE 325 MG (65 MG ELEMENTAL IRON) TAB PO SCH ×3 (00:02→21:28)
[2016-03-24] MEDS: SODIUM CHLORIDE 0.9% FLUSH 5 ML FLUSH FLUSH SCH ×3 (00:02→21:00)
[2016-03-24] MEDS: SODIUM CHLOR 0.9% 1000 ML INJ 1,000 ML IV SCH ×3 (00:03→22:21)
[2016-03-24] MEDS: CEFEPIME INJ 1,000 MG in SODIUM CHLORIDE 0.9% INJ 100 ML IV SCH (03:14)
[2016-03-24] MEDS: PENICILLIN G POTASSIUM INJ 3,000,000 UNITS in SODIUM CHLORIDE 0.9% INJ 100 ML IV SCH ×4 (04:43→09:44)
[2016-03-24 05:15] LABS: AUTOMATED NEUTROPHIL # 9.6 TH/MM3 (1.8-7.7); BASOPHIL # 0.1 TH/MM3 (0-0.2); BASOPHIL % 0.6 % (0.0-2.0); EOSINOPHIL # 0.2 TH/MM3 (0-0.4); EOSINOPHIL % 2.1 % (0.0-4.0); HEMATOCRIT 21.2 % (39.0-51.0); LYMPH % 8.1 % (9.0-44.0); LYMPHOCYTE # 0.9 TH/MM3 (1.0-4.8); MEAN CELL VOLUME 79.4 FL (80.0-100.0); MEAN CORPUSCULAR HEMOGLOBIN 25.7 PG (27.0-34.0); MEAN CORPUSCULAR HGB CONC 32.4 % (32.0-36.0); MONO % 6.2 % (0.0-8.0); PLATELET COUNT 373 TH/MM3 (150-450); RED BLOOD COUNT 2.67 MIL/MM3 (4.50-5.90); RED CELL DISTRIBUTION WIDTH 18.5 % (11.6-17.2); WHITE BLOOD COUNT 11.6 TH/MM3 (4.0-11.0)
[2016-03-24 05:20] LABS: ALT (GPT) 34 U/L (12-78); ANION GAP 9 MEQ/L (5-15); AST (GOT) 39 U/L (15-37); BICARBONATE 24.7 MEQ/L (21.0-32.0); BLOOD UREA NITROGEN 11 MG/DL (7-18); CHLORIDE 103 MEQ/L (98-107); GLOMERULAR FILTRATION RATE 150 ML/MIN (>89); POTASSIUM 3.3 MEQ/L (3.5-5.1); SODIUM (NA) 137 MEQ/L (136-145)
[2016-03-24 05:22] LABS: ALKALINE PHOSPHATASE 193 U/L (45-117); TOTAL BILIRUBIN ADULT 0.3 MG/DL (0.2-1.0)
[2016-03-24 05:35] LABS: HEMO FLAGS DIFF FINAL
[2016-03-24] MEDS ORDERED: SODIUM CHLOR 0.9% 250 ML INJ 250 ML IV ONE (06:00)
[2016-03-24] MEDS: VANCOMYCIN INJ 1,500 MG in SODIUM CHLORID 0.9% 500 ML INJ 500 ML IV SCH ×2 (06:56→18:06)
[2016-03-24] MEDS: LIDOCAINE HCL 5% PATCH TD SCH (09:00)
[2016-03-24] MEDS: SERTRALINE HCL 50 MG TAB PO SCH (09:40)
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
[2016-03-24] MEDS: ACETAMINOPHEN 325 MG TAB PO PRN ×2 (10:42→21:29)
[2016-03-24] MEDS ORDERED: SODIUM CHLORID 0.9% IV SCH (13:00)
[2016-03-24] MEDS ORDERED: PENICILLIN POTASSIUM IV SCH (13:00)
[2016-03-24] MEDS: SODIUM CHLORID 0.9% IV SCH (14:29)
[2016-03-24] MEDS: PENICILLIN POTASSIUM IV SCH (14:29)
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
[2016-03-24 20:21] LABS: REVIEW FLAG FINAL
[2016-03-24] MEDS: REMOVE OLD PATCH T-DERMAL SCH (21:00)
[2016-03-24] MEDS: METOPROLOL TARTRATE 25 MG TAB PO SCH (21:28)
[2016-03-25] VITALS (8 sets, daily range): BP systolic 87–122; BP diastolic 48–81; PULSE 84–105; RESP 16–20; TEMP 97.1–100.1; O2SAT 91–100
[2016-03-25] MEDS: BACLOFEN 10 MG TAB PO SCH ×3 (05:31→22:00)
[2016-03-25] MEDS: SODIUM CHLOR 0.9% 1000 ML INJ 1,000 ML IV SCH ×2 (05:32→18:01)
[2016-03-25] MEDS: VANCOMYCIN INJ 1,500 MG in SODIUM CHLORID 0.9% 500 ML INJ 500 ML IV SCH (05:32)
[2016-03-25] MEDS ORDERED: PHARMACY ORDERED LAB XX ONE (05:45)
[2016-03-25] MEDS: FERROUS SULFATE 325 MG (65 MG ELEMENTAL IRON) TAB PO SCH ×2 (08:59→20:00)
[2016-03-25] MEDS: SODIUM CHLORIDE 0.9% FLUSH 5 ML FLUSH FLUSH SCH ×2 (09:00→21:00)
[2016-03-25] MEDS: LIDOCAINE HCL 5% PATCH TD SCH (09:00)
[2016-03-25] MEDS: APIXABAN 5 MG TABLET PO SCH ×2 (09:01→21:00)
[2016-03-25] MEDS: METOPROLOL TARTRATE 25 MG TAB PO SCH ×2 (09:01→21:00)
[2016-03-25] MEDS: POTASSIUM CHLORIDE 10 MEQ CAP PO SCH (09:01)
[2016-03-25] MEDS: FAMOTIDINE 20 MG TAB PO SCH ×2 (09:01→21:00)
[2016-03-25] MEDS: FUROSEMIDE 20 MG TAB PO SCH (09:01)
[2016-03-25] MEDS: SERTRALINE HCL 50 MG TAB PO SCH (09:02)
--- NOTE | 2016-03-25 16:07 | HHI.PR ---
Subjective Remarks Follow up for febrile illness possibly sepsis. Mr. Kay is doing well. No acute concerns. Denies any fever, chills. Objective Vitals Vital Signs Date Time Temp Pulse Resp B/P Pulse Ox O2 Delivery O2 Flow Rate FiO2 03/25/16 16:00 98.8 92 16 87/48 95 03/25/16 12:00 97.6 85 16 106/57 95 03/25/16 10:23 16 03/25/16 08:00 97.1 91 16 104/57 95 03/25/16 07:41 89 03/25/16 04:00 98.5 84 18 102/59 91 03/25/16 00:00 98.0 100 18 122/81 98 03/24/16 20:51 99.5 106 18 119/67 98 03/24/16 18:00 101 I/O 03/24/16 03/24/16 03/24/16 03/25/16 03/25/16 03/25/16 07:00 15:00 23:00 07:00 15:00 23:00 Intake Total 120 ml 2636 ml Output Total 475 ml 1650 ml 1000 ml 675 ml Balance -355 ml 986 ml -1000 ml -675 ml Intake Oral 120 ml 1200 ml IV Total 936 ml Packed Cells 500 ml Output Urine Total 475 ml 1650 ml 1000 ml 675 ml # Voids 2 2 1 # Bowel Movements 0 1 Result Diagram: 03/24/16 1832 03/24/16 0450 Imaging Last Impressions Chest X-Ray 03/23/16 0151 Signed Impressions: Service Date/Time: March 02:04 - CONCLUSION: 1. No acute cardiopulmonary disease. Kristopher Vinson MD Thoracic Spine CT 03/23/16 0000 Signed Impressions: Service Date/Time: March 22:31 - CONCLUSION: Postsurgical changes as above. Stable fracture at the T11 level with periosteal action similar to the prior study. No subcutaneous abscess is seen. Kristopher Vinson MD Lumbar Spine CT 03/23/16 0000 Signed Impressions: Service Date/Time: March 22:31 - CONCLUSION: 1. Small central protrusion at L5-S1 without stenosis. 2. Subcutaneous fluid collection at the lumbosacral junction as above which may reflect hematoma, seroma or abscess Kristopher Vinson MD Objective Remarks GENERAL: Alert, Oriented x 3, NAD. SKIN: Warm and dry. HEAD: Normocephalic. EYES: No scleral icterus. No injection or drainage. NECK: Supple, trachea midline. No JVD or lymphadenopathy. CARDIOVASCULAR: Regular rate and rhythm without murmurs, gallops, or rubs. RESPIRATORY: Breath sounds equal bilaterally. No accessory muscle use. GASTROINTESTINAL: Abdomen soft, non-tender, nondistended. MUSCULOSKELETAL: No cyanosis, or edema. Wound vac in place. BACK: Nontender without obvious deformity. No CVA tenderness. Procedures None. A/P Problem List: (1) Sepsis ICD Code: A41.9 Status: Acute (2) Decubitus ulcer ICD Code: L89.90 Status: Acute (3) Paraplegia ICD Code: G82.20 Status: Acute (4) Anemia ICD Code: D64.9 Status: Acute Assessment and Plan This is a 30-year-old male with PMH of Paraplegia s/p LONG TERM w/ Traumatic T11-12 Fx /Dislocation, Wound Dehiscence s/p I&D w/ Wound VAC 02/17/16, Enterococcus + Cultures, on long-term IV Abx w/ PCN G, Anxiety and Depression who presented to the ER on 03/23/2016 w/ fever of 102F. On arrival, BP 131/64, HR 136, O2 sat 98% on RA, Temp 102.9. WBC 17.5. Hgb 7.8, previously 7.8 on 03/20/16. Lactic Acid normal. UA negative for UTI. CXR with no acute findings. S/p Blood Cultures, Vanc in ER. ID is following. Initially was on Vanc, Cefepime and PCN. Cefepime was discontinued on 03/24/2016. - Sepsis: Temp 102.9, HR 130, WBC 17.5, Lactic Acid 0.8, Source-unclear. U/a negative, CXR w/ no acute findings Wound VAC w/ no purulent drainage, no erythema. S/p Blood Cultures and IV Vanc. On PCN G for Wound Cultures + Enterococcus, continue PCN G, IV Vanc. Cefepime discontinued on 03/24/2016. - Since blood cultures are negative, we'll discontinue IV vancomycin on 2016. - Decubitus Ulcer: Present on admission, s/p wound dehiscence w/ I&D and Wound VAC placement, +Enterococcus w/ plans for IV Abx x6 wks, wound appears intact/ non-infected. Continue w/ PCN G. - wound care for wound VAC replacement. - Paraplegia: S/p LONG TERM w/ traumatic T11-12 Fx/Dislocation and subsequent paraplegia. - Anemia: Hgb 7.8, previously 7.8 on 03/20/16, 8.3 on 03/13/16. Hemoglobin dropped to 6.9, received one unit of PRBCs. Full code. Apixaban. Possible discharge home on 03/26/2016. Brady Barkley DO Mar 25, 2016 16:07
[2016-03-25] MEDS: SODIUM CHLORID 0.9% IV SCH (16:55)
[2016-03-25] MEDS: PENICILLIN POTASSIUM IV SCH (16:55)
[2016-03-25] MEDS: REMOVE OLD PATCH T-DERMAL SCH (21:00)
[2016-03-25] MEDS: QUEtiapine FUMARATE 25 MG TAB PO SCH (21:00)
[2016-03-25] MEDS: PRAZOSIN HCL 5 MG CAP PO SCH (21:00)
[2016-03-25] MEDS: ACETAMINOPHEN 325 MG TAB PO PRN (21:35)
[2016-03-26] VITALS (7 sets, daily range): BP systolic 93–110; BP diastolic 54–64; PULSE 69–99; RESP 20; TEMP 96.6–100.4; O2SAT 94–98
[2016-03-26] MEDS: SODIUM CHLOR 0.9% 1000 ML INJ 1,000 ML IV SCH (01:25)
[2016-03-26] MEDS: BACLOFEN 10 MG TAB PO SCH ×3 (06:00→20:52)
[2016-03-26] MEDS: LIDOCAINE HCL 5% PATCH TD SCH (09:00)
[2016-03-26] MEDS: FAMOTIDINE 20 MG TAB PO SCH ×2 (09:47→20:52)
[2016-03-26] MEDS: POTASSIUM CHLORIDE 10 MEQ CAP PO SCH (09:47)
[2016-03-26] MEDS: FERROUS SULFATE 325 MG (65 MG ELEMENTAL IRON) TAB PO SCH ×2 (09:47→20:52)
[2016-03-26] MEDS: FUROSEMIDE 20 MG TAB PO SCH (09:48)
[2016-03-26] MEDS: SERTRALINE HCL 50 MG TAB PO SCH (09:48)
[2016-03-26] MEDS: APIXABAN 5 MG TABLET PO SCH ×2 (09:48→20:52)
[2016-03-26] MEDS: METOPROLOL TARTRATE 25 MG TAB PO SCH ×2 (09:48→20:52)
[2016-03-26] MEDS: SODIUM CHLORIDE 0.9% FLUSH 5 ML FLUSH FLUSH SCH ×2 (09:49→21:00)
--- NOTE | 2016-03-26 13:03 | HHI.PR ---
Subjective Remarks Follow up for febrile illness possibly sepsis. He had low-grade fever yesterday. Denies any current fever or chills. He reports swelling of the foreskin on his penis. Denies any drainage or redness around it. Objective Vitals Vital Signs Date Time Temp Pulse Resp B/P Pulse Ox O2 Delivery O2 Flow Rate FiO2 03/26/16 12:15 97.5 80 20 110/64 97 03/26/16 11:13 20 03/26/16 10:47 69 03/26/16 08:21 96.8 78 20 110/60 98 03/26/16 05:27 96.6 73 20 110/62 97 03/26/16 00:00 100.4 96 20 93/54 94 03/25/16 20:00 100.1 105 20 122/58 100 03/25/16 18:00 97 03/25/16 16:00 98.8 92 16 87/48 95 I/O 03/25/16 03/25/16 03/25/16 03/26/16 03/26/16 03/26/16 07:00 15:00 23:00 07:00 15:00 23:00 Intake Total 720 ml 720 ml 1100 ml Output Total 2000 ml 1275 ml 1150 ml 1100 ml Balance -2000 ml -555 ml -430 ml 0 ml Intake Oral 720 ml 720 ml IV Total 1100 ml Output Urine Total 2000 ml 1275 ml 1150 ml 1100 ml # Voids 1 1 2 # Bowel Movements 1 0 Result Diagram: 03/24/16 1832 03/24/16 0450 Imaging Last Impressions Chest X-Ray 03/23/16 0151 Signed Impressions: Service Date/Time: March 02:04 - CONCLUSION: 1. No acute cardiopulmonary disease. Kristopher Vinson MD Thoracic Spine CT 03/23/16 0000 Signed Impressions: Service Date/Time: March 22:31 - CONCLUSION: Postsurgical changes as above. Stable fracture at the T11 level with periosteal action similar to the prior study. No subcutaneous abscess is seen. Kristopher Vinson MD Lumbar Spine CT 03/23/16 0000 Signed Impressions: Service Date/Time: March 22:31 - CONCLUSION: 1. Small central protrusion at L5-S1 without stenosis. 2. Subcutaneous fluid collection at the lumbosacral junction as above which may reflect hematoma, seroma or abscess Kristopher Vinson MD Objective Remarks GENERAL: Alert, Oriented x 3, NAD. SKIN: Warm and dry. HEAD: Normocephalic. EYES: No scleral icterus. No injection or drainage. NECK: Supple, trachea midline. No JVD or lymphadenopathy. CARDIOVASCULAR: Regular rate and rhythm without murmurs, gallops, or rubs. RESPIRATORY: Breath sounds equal bilaterally. No accessory muscle use. GASTROINTESTINAL: Abdomen soft, non-tender, nondistended. MUSCULOSKELETAL: No cyanosis, or edema. Wound vac in place. BACK: Nontender without obvious deformity. No CVA tenderness. Procedures None. A/P Problem List: (1) Sepsis ICD Code: A41.9 Status: Acute (2) Decubitus ulcer ICD Code: L89.90 Status: Acute (3) Paraplegia ICD Code: G82.20 Status: Acute (4) Anemia ICD Code: D64.9 Status: Acute Assessment and Plan This is a 30-year-old male with PMH of Paraplegia s/p LONG TERM w/ Traumatic T11-12 Fx /Dislocation, Wound Dehiscence s/p I&D w/ Wound VAC 02/17/16, Enterococcus + Cultures, on long-term IV Abx w/ PCN G, Anxiety and Depression who presented to the ER on 03/23/2016 w/ fever of 102F. On arrival, BP 131/64, HR 136, O2 sat 98% on RA, Temp 102.9. WBC 17.5. Hgb 7.8, previously 7.8 on 03/20/16. Lactic Acid normal. UA negative for UTI. CXR with no acute findings. S/p Blood Cultures, Vanc in ER. ID is following. Initially was on Vanc, Cefepime and PCN. Cefepime was discontinued on 03/24/2016. - Sepsis: Temp 102.9, HR 130, WBC 17.5, Lactic Acid 0.8, Source-unclear. U/a negative, CXR w/ no acute findings Wound VAC w/ no purulent drainage, no erythema. S/p Blood Cultures and IV Vanc. On PCN G for Wound Cultures + Enterococcus, continue PCN G, IV Vanc. Cefepime discontinued on 03/24/2016. - Since blood cultures are negative, discontinued IV vancomycin on 03/25/2016. - Foreskin swelling - does not look infected. Apply cold compression. Per patient request, we will request an Urology consult. - Decubitus Ulcer: Present on admission, s/p wound dehiscence w/ I&D and Wound VAC placement, +Enterococcus w/ plans for IV Abx x6 wks, wound appears intact/ non-infected. Continue w/ PCN G. - wound care consult for wound VAC replacement. - Paraplegia: S/p LONG TERM w/ traumatic T11-12 Fx/Dislocation and subsequent paraplegia. - Anemia: Hgb 7.8, previously 7.8 on 03/20/16, 8.3 on 03/13/16. Hemoglobin dropped to 6.9, received one unit of PRBCs. Hgb 7.9 post transfusion. Full code. Apixaban. Possible discharge home on 03/27/2016. Brady Barkley DO Mar 26, 2016 1:03 pm
[2016-03-26] MEDS ORDERED: diphenhydrAMINE HCL 50 MG/ML VIAL IV ONE (18:00)
[2016-03-26] MEDS: SODIUM CHLORID 0.9% IV SCH (18:04)
[2016-03-26] MEDS: PENICILLIN POTASSIUM IV SCH (18:04)
--- NOTE | 2016-03-26 20:06 | PD.CONS ---
HPI Service Urology Consult Requested By Primary Care Physician Chandan Dhaliwal MD Diagnosis: (1) Sepsis ICD Code: A41.9 (2) Decubitus ulcer ICD Code: L89.90 (3) Paraplegia ICD Code: G82.20 (4) Anemia ICD Code: D64.9 History of Present Illness 30 yo paraplegic male secondary to FDC who manages bladder with intermitten catheterization seen in consultation for penile edema. Patient reports he noticed penile swelling this am that has worsened over time. He continues to be able to cath. No hematuria. No pain. Review of Systems ROS Limitations: Clinical Condition Constitutional: DENIES: Fever Endocrine: DENIES: Polyuria Eyes: DENIES: Blurred vision Ears, nose, mouth, throat: DENIES: Hearing loss Respiratory: DENIES: Apneas, Cough Cardiovascular: DENIES: Chest pain Gastrointestinal: DENIES: Abdominal pain Genitourinary: DENIES: Hematuria, Dysuria Musculoskeletal: DENIES: Back pain Integumentary: DENIES: Rash Hematologic/lymphatic: DENIES: Bruising Neurologic: DENIES: Headache Psychiatric: DENIES: Anxiety Except as stated in HPI: all other systems reviewed are Neg Past Family Social History Past Medical History Paraplegia s/p FDC w/ Traumatic T11-12 Fx/Dislocation, Wound Dehiscence s/p I&D w/ Wound VAC 02/17/16, Enterococcus + Cultures, on long-term IV Abx w/ PCN G, Anxiety and Depression Past Surgical History T10-L2 Fusion, I&D Thoracic Wound w/ VAC Reported Medications Reported Meds & Active Scripts Active Bedside Commode (Device) 1 Mis Mis 1 Ea .ROUTE DIRECTED Penicillin G Potassium Inj (Penicillin G Potassium) 5,000,000 Unit Inj 3,000, 000 Units IV Q4HR 24 Days follow up with ID appointment on 03/23 Senna Plus 8.6-50 mg (Sennosides-Docusate Sodium) 1 Tab Tab 1 Tab PO HS PRN 30 Days Zoloft (Sertraline HCl) 50 Mg Tab 50 Mg PO DAILY 30 Days Quetiapine (Quetiapine Fumarate) 25 Mg Tab 12.5 Mg PO HS 30 Days Minipress (Prazosin HCl) 5 Mg Cap 5 Mg PO HS 30 Days Potassium Chloride ER (Potassium Chloride) 10 Meq Cap 20 Meq PO DAILY 30 Days Oxycodone (Oxycodone HCl) 10 Mg Tab 5 Mg PO Q6HR PRN Metoprolol Tartrate 25 Mg Tab 12.5 Mg PO Q12HR 30 Days Methocarbamol 500 Mg Tab 500 Mg PO DAILY@1000 PRN 30 Days Magnesium Oxide 241.3 Mg Tab 400 Mg PO DAILY 30 Days Lidoderm Patch 12 HR (Lidocaine) 5% Patch 1 Patch TD DAILY 30 Days Furosemide 20 Mg Tab 20 Mg PO DAILY 30 Days Ferrous Sulfate 325 Mg Tab 325 Mg PO BID NEB 90 Days Bisac-Evac Supp (Bisacodyl) 10 Mg Supp 10 Mg RECTAL BID 30 Days Baclofen 10 Mg Tab 5 Mg PO Q8HR 30 Days Eliquis (Apixaban) 5 Mg Tab 5 Mg PO BID 30 Days Famotidine 20 Mg Tab 20 Mg PO BID 10 Days Oxycodone-Acetaminophen 5-325 mg Tab 1 Tab PO Q4H PRN 30 Days Allergies: Coded Allergies: Morphine (Verified Allergy, Severe, Hallucinations, 03/22/16) Active Ordered Medications Current Medications Medications (Trade) Dose Ordered Sig/Riccardo Route Start Time Stop Time Status Last Admin (NS Flush) 2 ml UNSCH PRN FLUSH 03/23/16 03:30 (NS Flush) 2 ml BID FLUSH 03/23/16 09:00 03/26/16 09:49 (Zofran Inj) 4 mg Q6H PRN IVP 03/23/16 03:30 (Dulcolax Supp) 10 mg DAILY PRN MT 03/23/16 03:30 (Tylenol) 650 mg Q6H PRN PO 03/23/16 03:30 03/25/16 21:35 (Dilaudid Pf Inj) 1 mg Q3H PRN IV 03/23/16 03:30 (Roxicodone) 10 mg Q4H PRN PO 03/23/16 03:30 03/26/16 17:35 (Eliquis) 5 mg BID PO 03/23/16 09:00 03/26/16 09:48 (Lioresal) 5 mg Q8HR PO 03/23/16 06:00 03/26/16 15:58 (Pepcid) 20 mg BID PO 03/23/16 09:00 03/26/16 09:47 (Ferrous Sulfate) 325 mg BID@08,20 PO 03/23/16 08:00 03/26/16 09:47 (Lidoderm 5% Patch.12 Hr) 1 patch DAILY TD 03/23/16 09:00 (Minipress) 5 mg HS PO 03/23/16 21:00 03/25/16 21:00 (SEROquel) 12.5 mg HS PO 03/23/16 21:00 03/25/16 21:00 (Zoloft) 50 mg DAILY PO 03/23/16 09:00 03/26/16 09:48 Miscellaneous Information 1 HS T-DERMAL 03/23/16 21:00 Miscellaneous 1 ea 1 ea UNSCH PRN OTHER 03/23/16 03:45 (Pfizerpen-G Inj/ NS 500 ml Inj) 500 ml @ 20.833 mls/ hr Q24H IV 03/24/16 14:00 03/26/16 18:04 (Lasix) 20 mg DAILY PO 03/25/16 09:00 03/26/16 09:48 (Lopressor) 12.5 mg Q12HR PO 03/24/16 21:00 03/26/16 09:48 (KCl) 20 meq DAILY PO 03/25/16 09:00 03/26/16 09:47 Family History Family history Reviewed and noncontributory to present illness. No h/o DM or CAD Social History Negative for alcohol, tobacco or drugs. Physical Exam Vital Signs Vital Signs Date Time Temp Pulse Resp B/P Pulse Ox O2 Delivery O2 Flow Rate FiO2 03/26/16 16:42 98.2 78 20 105/62 96 03/26/16 12:15 97.5 80 20 110/64 97 03/26/16 11:13 20 03/26/16 10:47 69 03/26/16 08:21 96.8 78 20 110/60 98 03/26/16 05:27 96.6 73 20 110/62 97 03/26/16 00:00 100.4 96 20 93/54 94 03/25/16 20:00 100.1 105 20 122/58 100 Physical Exam GENERAL: This is a well-nourished, well-developed patient, in no apparent distress. SKIN: No rashes, ecchymoses or lesions. Cool and dry. HEAD: Atraumatic. Normocephalic. EYES: Extraocular motions intact. No scleral icterus. No injection or drainage. ENT: Nose without bleeding, purulent drainage. Airway patent. NECK: Trachea midline. CARDIOVASCULAR: normal pulses, extremities well perfused RESPIRATORY: nonlabored respirations, equal chest rise GASTROINTESTINAL: Abdomen soft, non-tender, nondistended. GENITOURINARY: Mild penile edema noted, normal urethral meatus, no lesions, bilateral descended testis, no masses MUSCULOSKELETAL: Extremities without clubbing, cyanosis, mild LE edema.. NEUROLOGICAL: Awake and alert. Normal speech. Laboratory Date/Time Procedure Status Source Growth 03/24/16 18:32 Genital Culture - Preliminary Resulted Genital Urethra 03/23/16 13:45 Influenza Types A,B Antigen (DENISE) - Final Complete Nasal Washing NEGATIVE FOR FLU A AND B ANTIGEN.... 03/22/16 23:40 Aerobic Blood Culture - Preliminary Resulted Blood Peripheral NO GROWTH IN 4 DAYS 03/22/16 23:40 Anaerobic Blood Culture - Preliminary Resulted Blood Peripheral NO GROWTH IN 4 DAYS Result Diagram: 03/24/16 1832 03/24/16 0450 Assessment and Plan Problem List: (1) Acute renal failure ICD Code: N17.9 Status: Acute (2) Urinary retention ICD Code: R33.9 Status: Acute Assessment and Plan -Mild penile edema, no evidence of infection or allergic reaction -Recommend scrotal and penile elevation, decreased fluids. Will resolve over time -Discussed with patient in detail -Patient may follow-up as needed -Please call with questions Georgi King MD Mar 26, 2016 20:06
[2016-03-26] MEDS: QUEtiapine FUMARATE 25 MG TAB PO SCH (20:52)
[2016-03-26] MEDS: PRAZOSIN HCL 5 MG CAP PO SCH (20:52)
[2016-03-26] MEDS: SODIUM CHLORIDE 0.9% FLUSH 5 ML FLUSH FLUSH PRN (20:53)
[2016-03-26] MEDS: REMOVE OLD PATCH T-DERMAL SCH (21:00)
[2016-03-27] VITALS: BP 120/68; PULSE 98; RESP 20; TEMP 99.5; O2SAT 100
[2016-03-27 04:50] VITALS: BP 104/60; PULSE 107; RESP 20; TEMP 100.3; O2SAT 94
[2016-03-27] MEDS: BACLOFEN 10 MG TAB PO SCH ×3 (05:27→21:12)
[2016-03-27 08:00] VITALS: BP 117/62; PULSE 94; RESP 20; TEMP 99.5; O2SAT 95
[2016-03-27] MEDS: LIDOCAINE HCL 5% PATCH TD SCH (09:00)
[2016-03-27] MEDS: SERTRALINE HCL 50 MG TAB PO SCH (10:11)
[2016-03-27] MEDS: POTASSIUM CHLORIDE 10 MEQ CAP PO SCH (10:11)
[2016-03-27] MEDS: FAMOTIDINE 20 MG TAB PO SCH ×2 (10:12→21:12)
[2016-03-27] MEDS: FERROUS SULFATE 325 MG (65 MG ELEMENTAL IRON) TAB PO SCH ×2 (10:12→21:11)
[2016-03-27] MEDS: APIXABAN 5 MG TABLET PO SCH ×2 (10:12→21:11)
[2016-03-27] MEDS: FUROSEMIDE 20 MG TAB PO SCH (10:12)
[2016-03-27 12:00] VITALS: BP 108/67; PULSE 94; RESP 19; TEMP 99.1; O2SAT 97
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
[2016-03-27 16:00] VITALS: BP 111/61; PULSE 92; RESP 20; TEMP 99.4; O2SAT 96
[2016-03-27] MEDS: PENICILLIN POTASSIUM IV SCH (16:19)
[2016-03-27] MEDS: SODIUM CHLORID 0.9% IV SCH (16:19)
[2016-03-27 20:00] VITALS: BP 124/63; PULSE 105; RESP 18; TEMP 99.4; O2SAT 100
[2016-03-27] MEDS: REMOVE OLD PATCH T-DERMAL SCH (21:00)
[2016-03-27] MEDS: SODIUM CHLORIDE 0.9% FLUSH 5 ML FLUSH FLUSH SCH (21:00)
[2016-03-27] MEDS: PRAZOSIN HCL 5 MG CAP PO SCH (21:11)
[2016-03-27] MEDS: QUEtiapine FUMARATE 25 MG TAB PO SCH (21:12)
[2016-03-27] MEDS: METOPROLOL TARTRATE 25 MG TAB PO SCH (21:13)
[2016-03-27] MEDS: SODIUM CHLORIDE 0.9% FLUSH 5 ML FLUSH FLUSH PRN (21:18)
[2016-03-28] VITALS: BP 120/56; PULSE 94; RESP 18; TEMP 98.5; O2SAT 98
[2016-03-28 04:00] VITALS: BP 104/64; PULSE 78; RESP 18; TEMP 97.4; O2SAT 96
[2016-03-28] MEDS: BACLOFEN 10 MG TAB PO SCH (06:14)
[2016-03-28 07:02] LABS: AUTOMATED NEUTROPHIL # 7.5 TH/MM3 (1.8-7.7); BASOPHIL # 0.1 TH/MM3 (0-0.2); BASOPHIL % 0.8 % (0.0-2.0); EOSINOPHIL # 0.3 TH/MM3 (0-0.4); EOSINOPHIL % 3.4 % (0.0-4.0); HEMATOCRIT 24.1 % (39.0-51.0); HEMO FLAGS DIFF FINAL; LYMPH % 12.6 % (9.0-44.0); LYMPHOCYTE # 1.3 TH/MM3 (1.0-4.8); MEAN CELL VOLUME 78.3 FL (80.0-100.0); MEAN CORPUSCULAR HEMOGLOBIN 26.2 PG (27.0-34.0); MEAN CORPUSCULAR HGB CONC 33.4 % (32.0-36.0); NEUT % 74.2 % (16.0-70.0); PLATELET COUNT 443 TH/MM3 (150-450); RED BLOOD COUNT 3.08 MIL/MM3 (4.50-5.90); RED CELL DISTRIBUTION WIDTH 18.6 % (11.6-17.2); WHITE BLOOD COUNT 10.1 TH/MM3 (4.0-11.0)
[2016-03-28 07:25] LABS: BICARBONATE 29.4 MEQ/L (21.0-32.0); POTASSIUM 3.8 MEQ/L (3.5-5.1)
[2016-03-28 08:00] VITALS: BP 104/60; PULSE 68; RESP 18; TEMP 96.1; O2SAT 98
[2016-03-28] MEDS: SERTRALINE HCL 50 MG TAB PO SCH (10:04)
[2016-03-28] MEDS: POTASSIUM CHLORIDE 10 MEQ CAP PO SCH (10:04)
[2016-03-28] MEDS: FERROUS SULFATE 325 MG (65 MG ELEMENTAL IRON) TAB PO SCH (10:05)
[2016-03-28] MEDS: FUROSEMIDE 20 MG TAB PO SCH (10:05)
[2016-03-28] MEDS: FAMOTIDINE 20 MG TAB PO SCH (10:06)
[2016-03-28] MEDS: APIXABAN 5 MG TABLET PO SCH (10:06)
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
--- NOTE | 2016-03-28 12:20 | HHI.FF ---
Infusion Therapy Location of Infusion Therapy: Home Health Care IV Infusion Order Patient Information Patient Weight 109.2 kg Diagnosis: Diagnosis Enterococcal infection Lumbar, discitis, abscess Coded Allergies: Morphine (Verified Allergy, Severe, Hallucinations, 03/22/16) Administer Medication Penicillin G Potassium IV PCN 3 million units IV q4H CADD plus pump Stop Treatment: Apr 16, 2016 Additional Information Venous access: PICC Line Additional Instructions [x] Peripheral flush and dressing changes per protocol [x] Implanted port and central online editor: * Implanted port: 10 ml Normal Saline followed by 5 ml Heparin 100 units/ml Heparin flush after each use and monthly to maintain. [] May leave port accessed during therapy. [] May leave peripheral site accessed for duration of therapy. [x] If patient has SOB or respiratory distress, check oxygen saturation. If less than 90% or clinical signs of respiratory distress, administer oxygen at 2 L/min. via nasal cannula and notify physician. [x] Anaphylaxis/Reaction orders: * Stop infusion. * Keep IV line open with saline flush. * Notify physician. * Monitor vital signs every 15 minutes until symptoms resolve. * Check Oxygen saturation; Oxygen at 2 L/min. via nasal cannula if less than 90% or clinical signs of respiratory distress. * Administer diphenhydramine (Benadryl) 25 mg IV STAT, (unless patient has received as pre-med). May repeat once, if necessary. * Solu-Cortef 250 mg IVP over 30-60 seconds, use 100 mg vials for each dissolution. * Epinephrine (1mg/1 ml) 0.3 mg subcutaneously or IVP now with any signs of respiratory distress. * Check with physician for new additional pre-med orders if patient is re- challenged or re-treated. [x] May remove PICC line when treatment complete, after confirming with Physician. [x] If the patient is admitted to the hospital, the ED, or transferred via [facility] , complete transfer form including medication reconciliation order sheet. Laboratory Tests Weekly Labs: CBC w/diff, Creatinine, CRP, LFT's (Hepatic function test) (Labs every Sunday - copy to [facility]) Kim Dumont MD Mar 28, 2016 12:19
[2016-03-28 12:29] VITALS: BP 101/57; PULSE 71; RESP 18; TEMP 96.8; O2SAT 98
--- NOTE | 2016-03-28 12:35 | HHI.DS ---
Discharge Summary Admission Date Mar 23, 2016 at 3:17 am Discharge Date: Mar 28, 2016 Admitting Diagnosis Sepsis, anemia, paraplegia (1) Sepsis ICD Code: A41.9 Diagnosis: Principal (2) Decubitus ulcer ICD Code: L89.90 Diagnosis: Principal (3) Paraplegia ICD Code: G82.20 (4) Anemia ICD Code: D64.9 Procedures None. Brief History - From Admission This is a 30-year-old male with PMH of Paraplegia s/p NURSING HOME w/ Traumatic T11-12 Fx /Dislocation, Wound Dehiscence s/p I&D w/ Wound VAC 02/17/16, Enterococcus + Cultures, on long-term IV Abx w/ PCN G, Anxiety and Depression who presented to the ER w/ fever of 102. Denies increased secretions from thoracic wound VAC. No cough, SOB, nausea, vomiting or diarrhea. On arrival, BP 131/64, HR 136, O2 sat 98% on RA, Temp 102.9. WBC 17.5. Hgb 7.8, previously 7.8 on 03/20/16. Chemistry essentially unremarkable. Lactic Acid normal. UA negative for UTI. CXR with no acute findings. S/p Blood Cultures, Vanc in ER. CBC/BMP: 03/28/16 0615 03/28/16 0615 Significant Findings Laboratory Tests Test 03/28/16 06:15 Red Blood Count 3.08 MIL/MM3 (4.50-5.90) Hemoglobin 8.0 GM/DL (13.0-17.0) Hematocrit 24.1 % (39.0-51.0) Mean Corpuscular Volume 78.3 FL (80.0-100.0) Mean Corpuscular Hemoglobin 26.2 PG (27.0-34.0) Red Cell Distribution Width 18.6 % (11.6-17.2) Neutrophils (%) (Auto) 74.2 % (16.0-70.0) Monocytes (%) (Auto) 9.0 % (0.0-8.0) Creatinine 0.58 MG/DL (0.60-1.30) Calcium Level 8.4 MG/DL (8.5-10.1) Imaging Last Impressions Chest X-Ray 03/23/16 0151 Signed Impressions: Service Date/Time: March 02:04 - CONCLUSION: 1. No acute cardiopulmonary disease. Kristopher Vinson MD Thoracic Spine CT 03/23/16 0000 Signed Impressions: Service Date/Time: March 22:31 - CONCLUSION: Postsurgical changes as above. Stable fracture at the T11 level with periosteal action similar to the prior study. No subcutaneous abscess is seen. Kristopher Vinson MD Lumbar Spine CT 03/23/16 0000 Signed Impressions: Service Date/Time: March 22:31 - CONCLUSION: 1. Small central protrusion at L5-S1 without stenosis. 2. Subcutaneous fluid collection at the lumbosacral junction as above which may reflect hematoma, seroma or abscess Kristopher iVnson MD PE at Discharge GENERAL: Alert, Oriented x 3, NAD. SKIN: Warm and dry. HEAD: Normocephalic. EYES: No scleral icterus. No injection or drainage. NECK: Supple, trachea midline. No JVD or lymphadenopathy. CARDIOVASCULAR: Regular rate and rhythm without murmurs, gallops, or rubs. RESPIRATORY: Breath sounds equal bilaterally. No accessory muscle use. GASTROINTESTINAL: Abdomen soft, non-tender, nondistended. MUSCULOSKELETAL: No cyanosis, or edema. Wound vac in place. BACK: Nontender without obvious deformity. No CVA tenderness. Pt update on day of discharge Patient is doing well. Has been afebrile. He has a cystic lesion on the left heel - likely due to pressure. ID evaluated patient today and cleared for discharge. Hospital Course This is a 30-year-old male with PMH of Paraplegia s/p NURSING HOME w/ Traumatic T11-12 Fx /Dislocation, Wound Dehiscence s/p I&D w/ Wound VAC 02/17/16, Enterococcus + Cultures, on long-term IV Abx w/ PCN G, Anxiety and Depression who presented to the ER on 03/23/2016 w/ fever of 102F. On arrival, BP 131/64, HR 136, O2 sat 98% on RA, Temp 102.9. WBC 17.5. Hgb 7.8, previously 7.8 on 03/20/16. Lactic Acid normal. UA negative for UTI. CXR with no acute findings. S/p Blood Cultures, Vanc in ER. ID is following. Initially was on Vanc, Cefepime and PCN. Cefepime was discontinued on 03/24/2016. - Sepsis: Temp 102.9, HR 130, WBC 17.5, Lactic Acid 0.8, Source-unclear. U/a negative, CXR w/ no acute findings Wound VAC w/ no purulent drainage, no erythema. S/p Blood Cultures and IV Vanc. On PCN G for Wound Cultures + Enterococcus, continue PCN G, IV Vanc. Cefepime discontinued on 03/24/2016. - Since blood cultures are negative, discontinued IV vancomycin on 2016. PCN continued. - Penile edema - does not look infected. Apply cold compression. Urology recommended elevation, decreased fluid. - Left heel ulcer - apply warm compression. Home health nurse can provide wound care. - Decubitus Ulcer: Present on admission, s/p wound dehiscence w/ I&D and Wound VAC placement, +Enterococcus w/ plans for IV Abx x6 wks, wound appears intact/ non-infected. Continue w/ PCN G. - wound care consult for wound VAC replacement. - Paraplegia: S/p NURSING HOME w/ traumatic T11-12 Fx/Dislocation and subsequent paraplegia. - Anemia - likely of chronic disease. Hgb 7.8, previously 7.8 on 03/20/16, 8.3 on 03/13/16. Hemoglobin dropped to 6.9, received one unit of PRBCs. Hgb 8.0 on . After ID clearance, patient was discharged home with home health. Pt Condition on Discharge: Good Discharge Disposition: Disch w/ Home Health Serv Discharge Time: > 30 minutes Discharge Instructions DIET: Follow Instructions for: As Tolerated, No Restrictions Activities you can perform: Regular-No Restrictions Follow up Referrals: PCP Follow-up - 10 Days Continued Medications: Apixaban (Eliquis) 5 Mg Tab 5 MG PO BID Days 30 TAB Baclofen (Baclofen) 10 Mg Tab 5 MG PO Q8HR Days 30 TAB Bisacodyl Supp (Bisac-Evac Supp) 10 Mg Supp 10 MG RECTAL BID Days 30 Famotidine (Famotidine) 20 Mg Tab 20 MG PO BID Days 10 TAB Ferrous Sulfate (Ferrous Sulfate) 325 Mg Tab 325 MG PO BID NEB Days 90 TAB Furosemide (Furosemide) 20 Mg Tab 20 MG PO DAILY Days 30 TAB Lidocaine Patch 12 HR (Lidoderm Patch 12 HR) 5% Patch 1 PATCH TD DAILY Days 30 Magnesium Oxide (Magnesium Oxide) 241.3 Mg Tab 400 MG PO DAILY Days 30 TAB Methocarbamol (Methocarbamol) 500 Mg Tab 500 MG PO DAILY@1000 PRN spasm Days 30 TAB Metoprolol Tartrate (Metoprolol Tartrate) 25 Mg Tab 12.5 MG PO Q12HR Days 30 TAB Oxycodone (Oxycodone) 10 Mg Tab 5 MG PO Q6HR PRN pain #60 TAB Oxycodone-Acetaminophen (Oxycodone-Acetaminophen) 5-325 mg Tab 1 TAB PO Q4H PRN pain Days 30 TAB Penicillin G Potassium Inj (Penicillin G Potassium Inj) 5,000,000 Unit Inj [id number] UNITS IV Q4HR follow up with ID appointment on 03/23 Infection Days 24 Ref 0 VIAL Potassium Chloride ER (Potassium Chloride ER) 10 Meq Cap 20 MEQ PO DAILY Days 30 CAP Prazosin (Minipress) 5 Mg Cap 5 MG PO HS Days 30 CAP Quetiapine (Quetiapine) 25 Mg Tab 12.5 MG PO HS Days 30 TAB Sennosides-Docusate Sodium (Senna Plus 8.6-50 mg) 1 Tab Tab 1 TAB PO HS PRN constipation Days 30 TAB Sertraline (Zoloft) 50 Mg Tab 50 MG PO DAILY Days 30 TAB Brady Barkley DO Mar 28, 2016 12:35
--- NOTE | 2016-03-28 12:36 | HHI.FF ---
Face to Face Verification Diagnosis: (1) Sepsis (2) Paraplegia (3) Decubitus ulcer Home Health Nursing Order: Medical education Signs/symptoms of disease process Medication education-adverse effect Wound care and dressing changes Nursing assessment with vital signs IV medication administration I have seen patient Vinnie Kay on 03/28/16. My clinical findings support the need for the requested home health care services because: Ltd mobility - disease progression Patient has SOB Deconditioned w/ increased weakness Limited ability to care for self Need for psychosocial assistance Impaired cognition/judgement High risk of falls Infection w/ risk of complications I certify that my clinical findings support that this patient is homebound because: Unsteady gait/balance Unsafe to leave home unassisted Need for psychosocial assistance [id number] bed/chair Unable to use public transportation Brady Barkley DO Mar 28, 2016 12:36 pm
[2016-04-12] MEDS ORDERED: OXYC-395 PO (15:58)
[2016-05-17] MEDS ORDERED: VIAG25TA PO (15:44)
== END 2016-03-28 15:06 | disposition home health service (06) | DRG 872 ==
LOC: NEPE 21:29 → NEDA 03-23 03:17 → NEDH 03-23 10:42 → N05B 03-23 12:18
PROVIDERS: ADMIT Hospitalist; ATTEND Hospitalist
PROC: 0T9B70Z Drainage of Bladder with Drainage Device, Via Natural or Artificial Opening (ICD-10-PCS; principal; 2016-03-23)
DX: A41.9 Sepsis, unspecified organism (principal); N17.9 Acute kidney failure, unspecified; G82.20 Paraplegia, unspecified; L97.429 Non-pressure chronic ulcer of left heel and midfoot with unspecified severity; L89.90 Pressure ulcer of unspecified site, unspecified stage; F43.10 Post-traumatic stress disorder, unspecified; I10 Essential (primary) hypertension; M19.072 Primary osteoarthritis, left ankle and foot; M19.071 Primary osteoarthritis, right ankle and foot; F32.9 Major depressive disorder, single episode, unspecified; F41.9 Anxiety disorder, unspecified; Z88.5 Allergy status to narcotic agent; N48.89 Other specified disorders of penis; R33.9 Retention of urine, unspecified; B95.2 Enterococcus as the cause of diseases classified elsewhere; D63.8 Anemia in other chronic diseases classified elsewhere
CPT/HCPCS: 36430; 71010; 72129; 72132; 80048; 80053; 80202; 81001; 82150; 83605; 83690; 85014; 85018; 85025; 85652; 86140; 86403; 86850; 86900; 86901; 86920; 87040; 87070; 87804; 96365; J0692; J1200; J2540; J3370; J7030; J7040; J7050; P9016; Q9967